=== PATIENT | female | born 1980 | race African-American/Black ===

== ENCOUNTER 2018-07-20 00:10 | Emergency (ER) | payer MEDICAID ==
--- NOTE | 2018-07-20 00:17 | EDPHY ---
H & P Time Seen by Provider: 07/20/18 00:15 HPI/ROS: HPI CHIEF COMPLAINT: Mechanical trip and fall, alcohol intoxication, chin laceration, mandibular pain. HISTORY OF PRESENT ILLNESS: This is a very pleasant 37-year-old female, denies any significant medical history, presents emergency room after she had mechanical trip and fall. She states she had multiple glasses of wine this evening. She tripped. She fell on her chin. She sustained a chin laceration 3 cm. She also complains of bilateral mandibular pain and jaw pain. But no malocclusion with bite. She does have a chipped LEFT front incisor. No other significant trauma. Denies neck pain or headache. Denies chest pain or shortness of breath. Denies numbness or tingling. Denies arm weakness. She is unsure of her tetanus shots up-to-date however she has declined tetanus shot. Past Medical History: Denies significant medical history Past Surgical History: Denies significant surgical Social History: denies daily use of drugs alcohol tobacco. Had glasses of wine this evening. Family History: Noncontributory ROS REVIEW OF SYSTEMS: 10 Systems were reviewed and negative with the exception of the elements mentioned in the history of present illness. Exam Constitutional triage nursing summary reviewed, vital signs reviewed, awake/ alert. Eyes normal conjunctivae and sclera, EOMI, PERRLA. HENT face: Midface is stable. No crepitus. With bite no evidence of malocclusion on exam. The front Left incisor is chipped. Midface stable. Noted midline chin is a 2 cm horizontally oriented laceration. Otherwise atraumatic head and neck exam. No midline cervical spine pain or step-offs. Otherwise head is atraumatic as well. Additionally there is a through through lip laceration of the mid lip. Frenulum intact. This did not need any repair his is not gaping. On the external surface of this was a small tooth fragment. normal inspection, atraumatic, moist mucus membranes, no epistaxis, neck supple/ no meningismus, no raccoon eyes. Respiratory clear to auscultation bilaterally, normal breath sounds, no respiratory distress, no wheezing. Cardiovascular rate normal, regular rhythm, no murmur, no edema, distal pulses normal. Gastrointestinal soft, non-tender, no rebound, no guarding, normal bowel sounds, no distension, no pulsatile mass. Genitourinary no CVA tenderness. Musculoskeletal no midline vertebral tenderness, full range of motion, no calf swelling, no tenderness of extremities, no meningismus, good pulses, neurovascularly intact. Skin pink, warm, & dry, no rash, chin laceration. Neurologic awake, alert and oriented x 3, AAOx3, moves all 4 extremities equally, motor intact, sensory intact, CN II-XII intact, normal cerebellar, normal vision, normal speech. Psychiatric normal mood/affect. Heme/Lymph/Immune no lymphadenopathy. Differential Diagnosis: Includes but is not limited to in a particular order mandible fracture, soft tissue injury, contusion, facial laceration Medical Decision Making: Plan for this patient given mandibular pain, and mechanism of injury will proceed with CT maxillofacial for acute traumatic injury. Will additionally repair the patient's chin laceration. She is unsure about her tetanus shot is decline tetanus shot here. Re-evaluation: CT scan of the cervical spine was negative for acute traumatic injury called to me by Dr. Medeiros. CT maxillofacial without contrast for trauma negative for mandibular fracture. Laceration Repair Procedure: Verbal Consent was obtained, Under sterile conditions, The patient had lidocaine with epinephrine used approximately 4ccs to local anesthetize the CHIN 3CM Laceration. The wound was copiously irrigated with sterile fluid, the wound was explored for foreign bodies there were none visualized, the wound was explored with a sterile glove to the base. There are no deep structures involved, including no arterial injury. THREE 6.O PROLENE interrupted Sutures were placed in this patient's laceration. She had good close approximation of the wound edges. She Tolerated this well. Additionally there is a through through lip laceration of the mid lip. Frenulum intact. This did not need any repair his is not gaping. On the external surface of this was a small tooth fragment. Patient understands have sutures removed in 7 days. Patient understands keep the wound clean, dry and intact. Patient understands return emergency room if there is worsening symptoms questions or concerns. Source: Patient, EMS Constitutional: Initial Vital Signs Temperature (C) 36.6 C 07/20/18 00:12 Heart Rate 86 07/20/18 00:12 Respiratory Rate 16 07/20/18 00:12 Blood Pressure 125/82 H 07/20/18 00:12 O2 Sat (%) 98 07/20/18 00:12 O2 Delivery Mode Room Air Allergies/Adverse Reactions: No Known Allergies Allergy (Unverified 07/20/18 00:18) Departure - Departure Disposition: Home, Routine, Self-Care Clinical Impression: Chin laceration Qualifiers: Encounter type: initial encounter Qualified Code(s): S01.81XA - Laceration without foreign body of other part of head, initial encounter Condition: Good Instructions: Care For Your Stitches (ED), Laceration (ED) Additional Instructions: 1. Keep your wound clean, dry and protected. 2. Warm soapy water is fine. 3. Ibuprofen and/or Tylenol for pain control. 4. Sutures to be removed in 7 days. 5. Follow up with the dentist. Referrals: Patient,NotPresent [Primary Care Provider] - As per Instructions
[2018-07-20 01:25] VITALS: BP 123/78
== END 2018-07-20 01:16 | disposition home or self-care (01) ==
LOC: EDBD 00:10
PROC: 0HQ1XZZ Repair Face Skin, External Approach (ICD-10-PCS; principal; 2018-07-20)
DX: S01.81XA Laceration without foreign body of other part of head, initial encounter (principal); S02.5XXA Fracture of tooth (traumatic), initial encounter for closed fracture; F10.920 Alcohol use, unspecified with intoxication, uncomplicated; W19.XXXA Unspecified fall, initial encounter; Y92.9 Unspecified place or not applicable
CPT/HCPCS: L0172